=== PATIENT | female | born 1990 | race Caucasian/White ===

== ENCOUNTER 2018-05-22 02:57 | Observation (INO) | payer BC ==
[2015-01-25 09:28] VITALS: Ht 172.7 cm; Wt 60.3 kg
[2018-05-22] VITALS (13 sets, daily range): BP systolic 92–114; BP diastolic 48–82
[~2018-05-22] VITALS: Ht 172.7 cm; Wt 60.3 kg
[~2018-05-22 02:57] MED LIST: ACE500 PO; Acetaminophen/Hydrocodone PO; BIRTH CONTROL PILL PO; HYDR2TAB4 PO; HYOS-8 PO; IBUP-2704 PO; IBUP600T22 PO; IBUP800T37 PO; OMEP-218 PO; OXYC-865 PO; PER PO
[2018-05-22] MEDS ORDERED: fentaNYL CITR 250 MCG/5 ML AMP ONE (07:04)
[2018-05-22] MEDS ORDERED: ONDANSETRON 4 MG/2 ML VIAL ONE (07:05)
[2018-05-22] MEDS ORDERED: DEXAMETHASONE SOD PHOS 10MG/ML ONE (07:05)
[2018-05-22] MEDS ORDERED: PROPOFOL EMUL(*) 10MG/ML 20 ML 20 ML ONE (07:05)
[2018-05-22] MEDS ORDERED: LIDOCAINE MPF 1% 5 ML VIAL ONE (07:05)
[2018-05-22] MEDS ORDERED: ACETAMINOPHEN(*)1000 MG/100 ML 100 ML IVPB ONE (07:16)
[2018-05-22] MEDS ORDERED: HALOPERIDOL LACT 5 MG/ML VIAL IM ONE (07:16)
[2018-05-22] MEDS ORDERED: PREGABALIN 150 MG CAPSULE PO ONE (07:25)
[2018-05-22] MEDS ORDERED: MIDAZOLAM 2 MG/2 ML VIAL IVP PRN (07:30)
[2018-05-22] MEDS ORDERED: cefOXitin/DEX(*) 2GM/50ML PREM 50 ML IVPB ONE (07:30)
[2018-05-22] MEDS ORDERED: FAMOTIDINE 20 MG TAB PO ONE (07:30)
[2018-05-22] MEDS ORDERED: LIDOCAINE/SOD BICARB 8.4% SYR ID ONE (07:30)
[2018-05-22] MEDS ORDERED: NORMOSOL R SOLN(*) 1000 ML BAG 1,000 ML IV PRN (07:30)
[2018-05-22] MEDS ORDERED: PHENAZOPYRIDINE 200 MG TAB PO ONE (07:30)
[2018-05-22 07:36] LABS: PLATELET COUNT, AUTOMATED 221 K/uL (150-450)
[2018-05-22] MEDS ORDERED: ROPIVACAINE 0.2% 20 ML VIAL ONE (08:35)
[2018-05-22] MEDS ORDERED: NS(*) 0.9% 100 ML BAG 100 ML ONE (08:36)
[2018-05-22] MEDS ORDERED: VASOPRESSIN 20 UNIT/ML VIAL ONE (08:36)
[2018-05-22] MEDS ORDERED: ESTROGENS CONJ VAG CREAM 30 GM TUBE PV ONE (08:36)
[2018-05-22] MEDS ORDERED: ROCURONIUM BROM 10 MG/ML 10 ML ONE (09:00)
[2018-05-22] MEDS ORDERED: KETAMINE HCL 200 MG/20 ML MDV ONE (09:08)
[2018-05-22] MEDS ORDERED: KETOROLAC 30 MG/ML VIAL ONE (09:40)
[2018-05-22] MEDS ORDERED: HYDROmorphone HCL 2 MG/ML SDV ONE (09:58)
[2018-05-22] MEDS ORDERED: SUGAMMADEX SOD 200 MG/2 ML SDV ONE (11:41)
[2018-05-22] MEDS ORDERED: ZOLPIDEM TARTRATE 10 MG TAB PO PRN (12:35)
[2018-05-22] MEDS ORDERED: ONDANSETRON 4 MG/2 ML VIAL IV PRN (12:35)
[2018-05-22] MEDS ORDERED: ACETAMINOPHEN 325 MG TAB PO PRN (12:35)
[2018-05-22] MEDS ORDERED: HYDROmorphone HCL 2 MG TAB PO PRN (12:35)
[2018-05-22] MEDS ORDERED: PROMETHAZINE 25 MG/ML 1 ML AMP IVP PRN (12:35)
[2018-05-22] MEDS ORDERED: IBUP600T22 PO (12:43)
[2018-05-22] MEDS ORDERED: OXYC-865 PO (12:43)
[2018-05-22] MEDS ORDERED: DOCU-416 PO (12:43)
--- NOTE | 2018-05-22 12:45 | Post Operative Note ---
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
[2018-05-22] MEDS ORDERED: fentaNYL CITR 100 MCG/2 ML AMP ONE (13:07)
[2018-05-22] MEDS: DLR(*) 1000 ML BAG 1,000 ML IV PRN (14:10)
[2018-05-22] MEDS ORDERED: KETOROLAC 30 MG/ML VIAL IVP SCH (16:00)
--- NOTE | 2018-05-22 16:41 | OPERATIVE REPORT 1 ---
EVENT DATE: May 22, 2018 SURGEON: Saulo Farfan MD ANESTHESIOLOGIST: Hal Watson MD ANESTHESIA: General endotracheal. CHIMNEY BUILDER HELPER: Sharri Reddy PA-C PREOPERATIVE DIAGNOSES 1. Secondary dysmenorrhea. 2. Deep dyspareunia. 3. Rectocele midline. POSTOPERATIVE DIAGNOSES 1. Secondary dysmenorrhea. 2. Deep dyspareunia. 3. Rectocele midline. PROCEDURES PERFORMED 1. Robotic-assisted total laparoscopic hysterectomy. 2. Bilateral salpingectomy. 3. Diagnostic cystoscopy. 4. Posterior colporrhaphy. ESTIMATED BLOOD LOSS 50 mL FLUIDS Crystalloid 1900 mL IV. FINDINGS Normal-appearing ovaries bilaterally. Slightly enlarged, boggy uterus. No visible pathology. Normal-appearing appendix and right upper quadrant. PROCEDURE IN DETAIL The patient was brought to the operating room with a working IV in place in the dorsal supine position. She was placed under general endotracheal anesthesia and moved to the dorsal lithotomy position. She was then prepped and draped in the usual sterile fashion. Using a weighted speculum, the cervix was visualized and grasped on the anterior lip with a single-toothed tenaculum. It was sounded to a depth of 9 cm anteverted. The cervix was dilated to a size 5 Hegar dilator. A medium size VCare uterine manipulator was selected, assembled, passed through the cervix into the uterus, balloon inflated and secured, and the VCare cup was sutured to the cervix. The pneumo colpo cup was approximated against the colotomy cup and thus secured in place. A Christiansen catheter was placed to dependent drainage. Gloves were changed. Legs were brought back to the supine position, and then we proceeded with laparoscopy. One cm cephalad from the umbilicus was infiltrated with 0.2% Naropin. An 8 mm stab incision was made, and a Veress needle was passed through this incision into the abdomen and well stabilized in the anterior abdominal wall. A pneumoperitoneum was created to an intra-abdominal pressure of 20 mmHg. This was then reduced to 15 mmHg when all ports had been placed. The Veress needle was removed. An 8 mm bladeless robotic trocar was passed through this incision while stabilizing the anterior abdominal wall. This was done via direct visualization with the scope. The abdomen and pelvis were inspected with the above findings noted. Additional ports were placed as follows: 8 cm left lateral to the umbilical port another robotic port under direct visualization with the scope; 7 cm lateral to this port an 8 mm assistant sales director port was placed; and then right lateral to the umbilicus spaced 8 cm apart, two additional robotic ports, all placed via direct visualization under a similar technique. These were performed atraumatically and without incident. The patient was moved to the Trendelenburg position. The pelvic contents including bowel were swept out of the pelvis, and the uterus was elevated and inspected. The above findings were noted. The robot was then brought over the patient and parked in place. The #2 arm was docked to the umbilical port, and the scope was assembled and dropped into that port. The pelvis was brought into view, and the target anatomy was placed into view. A targeting procedure was performed and passed, and each additional arm of the robot was then docked to its respective port. A vessel sealer was placed in the robotic arm #1, the monopolar scissors on #3, and grasper on #4. At this point, I scrubbed out and presented at the console. The hysterectomy proceeded as follows: The right fallopian tube was dissected away from the mesosalpinx pelvic connection using the vessel sealer along its entire length to the utero- ovarian ligament which was cauterized and transected with the vessel sealer. The round ligament was then cauterized and transected with the vessel sealer. The broad ligament was into anterior and posterior leaflets. The anterior leaflet was dissected anteriorly along the anterior uterus, and a bladder reflection was created and pushed away from the underlying VCare cup. The broad ligament posteriorly was dissected towards the uterosacral ligament, skeletonizing the uterine vasculature. This was then cauterized on a perpendicular angle with the vessel sealer and cauterized and cut. Parallel bites with the vessel sealer were performed along the lateral uterus and cervix to the colpotomy cup. The same procedure was followed on the contralateral side in a likewise fashion, dissecting the tube away from its mesosalpinx connection, cauterizing the utero-ovarian ligament and transecting, and transecting and entering the round ligament. The anterior dissection was completed, as well as the posterior leaflet of the broad ligament was taken down to the uterosacral ligament, exposing the uterine vasculature which was cauterized and transected at a perpendicular angle. Parallel bites were then followed along the left lateral uterus to the colpotomy cup. Anterior colpotomy was then performed and continued circumferentially through the uterosacral ligaments posteriorly, and all the way back to the contralateral side, fully excising the uterus from the vagina. It was removed through the vagina, and there was noted to be some light bleeding along the vascular pedicle on the right. Monopolar cautery was used to cauterize what I was able, which significantly slowed it down. Instruments were then changed, and I proceeded with suturing 0 Vicryl at the angle stitches, securing the ipsilateral uterosacral ligament to that side of the vagina and trying to incorporate the bleeding portion. This mostly secured the bleeding, but there was still some oozing in that location. Therefore, a [id number] stitch was placed medial to the vascular pedicle and lateral to the vaginal cuff, and this secured hemostasis. The same procedure was followed on the contralateral side with a [id number]-[id number] stitch securing the uterosacral ligament to the ipsilateral vaginal mucosa, and the remaining vaginal cuff was closed with a 2-0 V-Loc stitch with excellent results and hemostasis achieved. The pelvis was then irrigated and suctioned dry. No visible bleeders. Both ovaries appeared viable. The procedure was terminated at this point, and all robotic instruments were removed. The robot was undocked. Skin incisions were repaired with 4-0 Monocryl simple subdermal. Diagnostic cystoscopy was performed, first removing the Christiansen catheter, and inspecting then the bladder through the cystoscope. No visible bladder injuries. Both ureteral orifices observed to have a strong urine jet, confirming ureteral patency; therefore, the cystoscopy was completed and removed. The Christiansen catheter was replaced. Legs were brought back to the lithotomy position, and we proceeded with the posterior repair. Identifying the laxity in the posterior compartment of the vagina and marking in the midline up to the vaginal cuff, a arturo-shaped resection of the perineal body was marked out as well. The entire area was infiltrated with a diluted pitressin solution for hemostasis and hydrodissection. Using a 15 blade scalpel, an incision was made along the entire length of the defect, and the arturo-shaped wedge resection of the perineal body was performed, removing the perineal skin in that location. The vaginal mucosa was dissected away from the defect using sharp dissection on both sides. Once adequately exposed, a 2-0 Vicryl was used to perform a pursestring stitch reducing the size of the defect, followed by Basilia plication stitches oversewing the pursestring stitch. Upon completion, a finger was placed in the rectum to palpate the repair through the rectum. There was one site-specific stitch that was needed midway over the repair. Once completed, there was an excellent mandaen of the endopelvic fascia overlying the rectum. Gloves were changed. Excess vagina was trimmed away. The vaginal cuff was repaired using a 2-0 Vicryl in a running locking stitch. Upon completion, there was excellent hemostasis. The perineal body was repaired as is typical for second-degree obstetrical repair with no complications. The vagina was then packed with a Kerlix sponge moistened with Premarin Cream. The Christiansen catheter was left indwelling and to dependent drainage. She tolerated the procedure well. Sponge, lap, instrument, and needle counts were all correct times three. Her legs were brought back to the supine position. She was awakened from anesthesia in stable condition and taken to Recovery. MACARENA
[2018-05-22] MEDS: HYDROmorphone HCL 2 MG TAB PO PRN ×2 (17:38→22:43)
[2018-05-22] MEDS: SIMETHICONE 80 MG CHEW CHEW PRN (17:39)
[2018-05-22] MEDS: KETOROLAC 30 MG/ML VIAL IVP SCH (18:02)
--- NOTE | 2018-05-22 19:06 | OB/GYN Progress Note ---
OB Subjective Progress Notes Subjective Stable postoperative. Pain control between doses of medication an issue but better now that adjusted to 1 or 2 pills of Dilaudid 2 mg between as needed. Has tolerated regular diet well and no nausea currently. 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 Home tomorrow if continues well. (2) History of robot-assisted laparoscopic hysterectomy GILBERT HUGHES MD May 22, 2018 19:06
[2018-05-22] MEDS: FAMOTIDINE 20 MG TAB PO SCH (20:24)
[2018-05-22] MEDS: DOCUSATE CALCIUM 240 MG CAP PO SCH (20:24)
[2018-05-23] MEDS: KETOROLAC 30 MG/ML VIAL IVP SCH (00:05)
[2018-05-23] MEDS: DLR(*) 1000 ML BAG 1,000 ML IV PRN ×2 (01:06→03:51)
[2018-05-23 03:10] VITALS: BP 97/87
[2018-05-23] MEDS: HYDROmorphone HCL 2 MG TAB PO PRN ×2 (03:30→11:53)
[2018-05-23] MEDS ORDERED: IBUPROFEN 800 MG TAB PO PRN (06:00)
[2018-05-23 06:57] LABS: PLATELET COUNT, AUTOMATED 211 K/uL (150-450)
[2018-05-23 07:19] VITALS: BP 96/62
[2018-05-23] MEDS: SIMETHICONE 80 MG CHEW CHEW PRN (08:05)
--- NOTE | 2018-05-23 09:04 | OB/GYN Progress Note ---
OB Subjective Progress Notes Subjective Doing well. No problems. Pain controlled. Has not voided yet. OB Objective Physical Exam Vital Signs Date Time Temp Pulse Resp B/P (MAP) Pulse Ox O2 Delivery O2 Flow Rate FiO2 05/23/18 07:19 98.0 95 15 96/62 (73) Room Air 05/23/18 05:50 93 05/22/18 18:00 1.0 Intake and Output 05/23/18 07:00 Intake Total 4440 ml Output Total 1525 ml Balance 2915 ml Intake Oral 440 ml IV Total 4000 ml Output Urine Total 1475 ml Estimated Blood Loss 50 ml General Appearance: Alert/Awake/No Acute Distress Neurological: No Gross deficits Respiratory: No Respiratory Distress, Clear to Auscultation Abdomen: Soft, Non-Tender, Non-Distended Incision: Clean, Dry, Intact, Dermabond Integumentary: Skin Intact without Lesions or Rash Psychological: Alert & Oriented X3, Appropriate Mood & Affect Result Diagram: 05/23/18 0630 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
[2018-05-23] MEDS ORDERED: HYDR2TAB4 PO (09:07)
--- NOTE | 2018-05-23 09:08 | Short(Outpt) Discharge Summary ---
Discharge Summary Reason for Hosp/Final Diag: (1) Other specified aftercare following surgery Hospital Course & Plan: Remove bazan and vaginal packing in AM. Home tomorrow if continues well. (2) History of robot-assisted laparoscopic hysterectomy Departure Discharge to: Home, Self Care Discharge Instructions Home Meds Active Scripts Hydromorphone Hcl (HYDROMORPHONE HCL) 2 Mg Tablet, 2 MG PO Q4H PRN for PAIN, #10 TAB 0 Refills Prov:GILBERT HUGHES MD 05/23/18 Ibuprofen (IBUPROFEN) 600 Mg Tablet, 1 TAB PO Q6H PRN for PAIN, #30 TAB 0 Refills Prov:SIMEON CRUZ 05/22/18 Docusate Sodium (COLACE) 100 Mg Capsule, 100 MG PO BID for constipation, #20 CAPSULE Prov:SIMEON CRUZ 05/22/18 Oxycodone Hcl/Acetaminophen (PERCOCET 5-325 MG TABLET) 1 Each Tablet, 1 EACH PO Q4-6H PRN for PAIN, #20 TAB 0 Refills TAKE 1 TABLET NEEDED FOR PAIN - NO CLOSER THAN EVERY 4-6 HOURS. Prov:SIMEON CRUZ 05/22/18 Reported Medications Ibuprofen (IBUPROFEN) 600 Mg Tablet, 1 TAB PO BID, TAB STOPPING NEXT WEEK FOR OR ON 05-22-18 05/15/18 Follow up Referrals: CUSTOMER SUPPORT CONSULTANT - In Two Weeks @ [facility] with GILBERT HUGHES MD Diet: Regular Activity: As Tolerated Copies to: GILBERT HUGHES MD ; GILBERT HUGHES MD May 23, 2018 09:05
[2018-05-23] MEDS: FAMOTIDINE 20 MG TAB PO SCH (09:09)
[2018-05-23] MEDS: DOCUSATE CALCIUM 240 MG CAP PO SCH (09:09)
[2018-05-23 12:00] VITALS: BP 111/66
[2018-05-24] MEDS ORDERED: INFLUENZA VIRUS VAC 0.5ML SYR IM ONLY ONE (09:00)
== END 2018-05-23 13:15 | disposition home or self-care (01) ==
LOC: OR 02:57 → INTOOBSV 13:55 → PED 13:55
PROVIDERS: ADMIT Obstetrics & Gynecology; ATTEND Obstetrics & Gynecology
DX: N94.5 Secondary dysmenorrhea (principal); N94.12 Deep dyspareunia; N81.6 Rectocele
CPT/HCPCS: 36415; 57250; 58571; 84703; 85014; 85018; 85025; 88307; 96372; G0378; J0131; J0694; J1100; J1170; J1630; J1885; J2001; J2250; J2405; J2704; J2795; J3010; J3490; J7050; S2900

== ENCOUNTER → 2018-07-22 | Outpatient (CLI) | payer BC ==
[2015-01-25 09:28] VITALS: BMI 25.9
[~2018-07-22] MED LIST changes: +DOCU-416 PO
--- NOTE | 2018-07-22 17:37 | RADIOLOGY IMAGING REPORT ---
FACILITY: [facility] PATIENT NAME: Zheng Jacobson : 1990 MR: [id number] V: [id number] EXAM DATE: ORDERING PHYSICIAN: SHIVAM GRACE TECHNOLOGIST: Location: [facility] Patient: Zheng Jacobson : 1990 Visit/Account:[id number] Date of Sevice: 07/22/2018 KIDNEYS EXAMINATION: Renal ultrasound. History: Surgery May 22, hematuria and UTI COMPARISON STUDIES: FINDINGS: Kidneys: Right kidney- 9.8 x 4.3 x 5.4 cm Left kidney- 10.3 x 4.3 x 4.9 cm Uniform and symmetric blood flow in each kidney by Doppler ultrasound. Hydronephrosis: none Resistive index on the right 0.58 on the left 0.52 Bladder: Urinary bladder prevoid volume 392 mL. Post for residual zero. Bilateral ureteral jets wer e present Abdominal aorta and IVC: Aorta and IVC are patent by Doppler ultrasound. IMPRESSION: Unremarkable renal ultrasound Report Dictated By: Starla Vargas MD at 07/22/2018 5:32 PM Report E-Signed By: Starla Vargas MD at 07/22/2018 5:34 PM WSN:[email or web address]
== END ==
LOC: US 00:46
PROVIDERS: ATTEND Urology
DX: R30.0 Dysuria (principal); R31.0 Gross hematuria; Z87.440 Personal history of urinary (tract) infections
CPT/HCPCS: 76705